=== PATIENT | male | born 2000 | race Caucasian/White ===

== ENCOUNTER 2024-07-24 00:05 | Emergency (ER) | payer OTHER, SELFPAY ==
[2024-07-24 00:07] VITALS: BP 126/90
--- NOTE | 2024-07-24 00:54 | ED.GENMED ---
History of Present Illness
General
Chief Complaint: Crisis Evaluation
Source: patient
Exam Limitations: none
Time Seen by Provider: 07/24/24 00:13
Nursing documentation reviewed up to this point in time: agreed with
History of Present Illness
History of Present Illness:
The patient is a 24-year-old male who presents with concerns regarding his alcohol consumption. He reports an inability to stop drinking, consuming over 10 alcoholic drinks daily, with occasional days off. The drinking pattern has been ongoing for
several years, with a notable increase in consumption over the past two years. His typical intake includes both beer and liquors. The patient describes experiencing shaking when not drinking but has no history of severe alcohol withdrawal symptoms,
such as delirium tremens or seizures. He denies any significant abdominal pain or episodes of nausea and vomiting. The last alcohol consumption was approximately 12 hours prior to arrival, where he managed to drink half a beer but did not finish it.
The patient also disclosed the use of cannabis with a valid card that he has not renewed and infrequent cocaine use, noting it is limited to social situations. He denied regular use or dependency on cocaine. No other substance use is reported.
He reports feelings of being very malnourished and does not currently take multivitamins. The patient has agreed to receive thiamine and multivitamin supplementation during this visit. There is a history of a past synthetic attempt to harm himself.
Review of Systems
Review of Systems
Allergies reviewed?: Yes
All Other Systems: ROS reviewed and negative except as documented in HPI and ROS
Phy Exam
Physical Exam
Physical Exam:
GENERAL: Alert , in no apparent distress
EYE: pupils equal and reactive
NECK: Supple, no significant adenopathy.
ENT: o/p clr, mmm.
CARDIAC: Regular rate and rhythm .
LUNGS: Clear breath sounds bilaterally, no acute respiratory distress, no wheezes/rales/rhonchi
ABDOMEN: Soft, without focal tenderness, no r/g, no cvat
NEUROLOGICAL: Alert and oriented, no focal neuro deficits
SKIN: Warm and dry, skin intact.
MUSCULOSKELETAL: No edema, well perfused.
PSYCH: Normal and appropriate interaction.
Course
Orders/Labs/Results
Orders:
Orders
07/24/24 00:13
Crisis Consult Urgent
Reason for Consult: SI
07/24/24 00:20
1:1 Observation - Suicide/ Violent Behavior As Directed
Crisis Consult Urgent
Reason for Consult: suicidal ideation
07/24/24 00:53
Urine Drug Abuse Screen Urgent
07/24/24 00:54
FOLic ACID [Folvite] 1 mg PO NOW STA
Multivitamin [Theragran] 1 tablet PO NOW STA
Thiamine HCl [Vitamin B1] 100 mg PO NOW STA
07/24/24 01:12
Alcohol Urgent
CBC/With Diff [Complete Blood Count/With Diff] Urgent
CMP [Comprehensive Metabolic Panel] Urgent
07/24/24 01:40
Nicotine [Nicoderm Transdermal] 21 mg .ROUTE .STK-MED ONE
07/24/24 04:07
Lorazepam [Ativan] 1 mg .ROUTE .STK-MED ONE
Vital Signs
Initial and Last Documented VS:
Initial Vital Signs
Temp Pulse Resp BP Pulse Ox
97.2 F 104 20 126/90 100
07/24/24 00:07 07/24/24 00:07 07/24/24 00:07 07/24/24 00:07 07/24/24 00:07
Last Documented Vital Signs
Temp Pulse Resp BP Pulse Ox
97.2 F 104 20 126/90 100
07/24/24 00:07 07/24/24 00:07 07/24/24 00:07 07/24/24 00:07 07/24/24 00:07
MDM/Problems Addressed
MDM/Problems Addressed:
Acute Problems:
- Alcohol use disorder with withdrawal symptoms
- Malnourishment and potential nutritional deficiencies
- Initiate thiamine and multivitamin supplementation to address malnourishment and prevent Wernickes encephalopathy.
- Coordinate with the [facility] team to ensure proper care pathways for substance use disorder treatment.
- Monitor for withdrawal symptoms and consider benzodiazepines if symptoms escalate.
- Obtain labs and urine sample as part of the admission process for evaluation.
*Critical Care Note
Total Time (30-74mins, 75-104mins- exclusive of procedures): Not Applicable
ED Attending Note
-
Portions of this chart may have been created with voice recognition software.� Occasional wrong word or��sound alike� substitutions may have occurred due to the inherent limitations of voice recognition software.
Discharge Plan
Departure
Patient Disposition: Psych Facility
Date of Disposition: 07/24/24
Time of Disposition: 04:26
Patient with high blood pressure during this ER visit?: No
Condition: Good
Covid-19: Not Applicable
Discharge Problem:
Alcohol abuse
Prescriptions:
No Action
celecoxib [Celebrex] 200 mg Capsule
200 mg PO BID
Referrals:
UNKNOWN - PT DOES,NOT KNOW [Family Provider]
Interventions
Interventions:
*Risk Screen - Suicide Last Done: 07/24/24 00:16
*Neglect/Abuse Screening Last Done: 07/24/24 00:16
ED-Psychological Assessment Last Done: 07/24/24 00:16
Discharge Date and Time
Print Language: GHANAIAN
--- NOTE | 2024-07-24 04:31 | DOWNTIME ---
Addendum entered by Zofia Sosa RN 07/24/24 15:30:
Correction: Downtime was 07/24/2024 from 0100 to 07/24/2024 at 0415.
Original Note:
There was a [employer] Downtime on 07/23/2024 from 0100 to 07/24/2024 at 0415. Downtime documentation of patient's care, including medication administrations, has been reconciled in the electronic record per guidelines. Refer to the
patient's paper chart under the miscellaneous tab to see printed paper medication records and downtime forms.
[2024-07-24 04:44] LABS: Amphetamines Negative (Negative); Barbiturates Negative (Negative); Benzodiazepines Negative (Negative); Buprenorphine Negative (Negative); Cocaine Positive (Negative); Marijuana Positive (Negative); Methadone Negative (Negative); Methamphetamines Negative (Negative); Opiates Negative (Negative); Phencyclidine Negative (Negative); Tricyclic Antidepressants Negative (Negative)
[2024-07-24 04:45] LABS: Fentanyl, Urine Negative (Negative)
[2024-07-24 05:06] LABS: ALT (SGPT) 32 U/L (0-50); AST (SGOT) 39 U/L (17-59); Albumin 4.8 g/dl (3.5-5.0); Alcohol 230 mg/dl; Alkaline Phosphatase 50 U/L (38-126); Blood Urea Nitrogen 6 mg/dl (9-20); Calcium 10.7 mg/dl (8.4-10.2); Carbon Dioxide 28 mmol/L (22-30); Chloride 105 mmol/L (98-107); Glucose 94 mg/dl (70-99); Potassium 4.2 mmol/L (3.5-5.1); Sodium 144 mmol/L (135-145); Total Bilirubin 0.5 mg/dl (0.2-1.3); eGFR > 60.00
[2024-07-24 05:41] LABS: % Basophils 0.5 % (0-2); % Eosinophils 0.2 % (0-6); % Immature Granulocytes 0.3 % (0-0.5); % Lymphocytes 35.4 % (20.5-51.1); % Monocytes 5.5 % (1.7-9.3); % Neutrophils 58.1 % (42.2-75.2); Absolute Monocytes 0.3 10^3/uL (0.1-0.6); Absolute Neutrophils 3.4 10^3/uL (1.4-6.5); Hematocrit 42.9 % (39.0-52.0); Hemoglobin 15.5 g/dL (13.0-18.0); Mean Corp Hgb Conc. 36.1 g/dL (33.0-37.0); Mean Corpuscular Hgb 34.6 pg (27.0-31.0); Mean Corpuscular Volume 95.8 fL (80.0-94.0); Mean Platelet Volume 9.1 fL (7.4-10.4); Nucleated Red Blood Cells % 0 % (-); Platelet Count 284 10^3/uL (130-400); Red Blood Cell Count 4.48 10^6/uL (4.70-6.10); Red Cell Dist. Width 12.2 % (11.5-14.5); White Blood Cell Count 5.8 10^3/uL (4.8-10.8)
== END 2024-07-24 04:00 ==
LOC: EMR 00:05
PROVIDERS: Physician Assistant; EMERGENCY PHYSICIAN Student in an Organized Health Care Education/Training Program
DX: F10.10 Alcohol abuse, uncomplicated (principal); E46 Unspecified protein-calorie malnutrition
CPT/HCPCS: 99283; 80053; 80306; 80307; 82077; 85025